=== PATIENT | female | born 1960 | race Caucasian/White ===

== ENCOUNTER 2017-05-21 01:24 | Observation (INO) | payer OTHER ==
--- NOTE | 2017-05-21 02:01 | ERPHSYRPT ---
- History of Present Illness Time Seen by Provider: 05/21/17 01:56 Source: patient, family Exam Limitations: no limitations Patient Subjective Stated Complaint: pt states she fell and hit her head. does not remember falling or events shortly after fall. Triage Nursing Assessment: pt awake and alert. speech slurred, pt having difficulty remembering words. respitations nonlabored with lungs cta. pt unsteady when transferring from wheelchair to stretcher. bruising and swelling noted to rt eye and cheek. abrasions to rt forehead above eye and below rt eye. pupils equal and reactive. strength in bilat upper and lower ext wnl. Physician History: pt fell earlier today after having been drinking etoh; she has trouble recalling the fall and may have had an LOC; she has abrasions of the face and swelling; no other complaints of pain or injury with full ROM all ext and no neuro deficits otehr than memory , and sister states she has had chronic memory problems as well. Severity: moderate Head Injury Location: frontal Method of Injury: fell Loss of Consciousness: unsure, memory impairment Associated Symptoms: denies symptoms Allergies/Adverse Reactions: tramadol Allergy (Verified 05/21/17 01:52) Home Medications: Benazepril HCl [Lotensin] 40 mg PO DAILY 08/24/12 [History] Alprazolam 1 mg [Xanax 1 mg] 1 mg PO Q8H PRN PRN 05/21/17 [History] Hydrochlorothiazide 25 mg [hydroDIURIL 25 MG] 25 mg PO DAILY 05/21/17 [ History] Oxycodone HCl/Acetaminophen [Percocet 10-325 mg Tablet] 1 each PO Q4H PRN PRN [History] Paroxetine HCl [Paxil] 20 mg PO DAILY 05/21/17 [History] Hx Tetanus, Diphtheria Vaccination/Date Given: Yes Hx Influenza Vaccination/Date Given: Yes (2009) Hx Pneumococcal Vaccination/Date Given: Yes (2009) - Review of Systems Constitutional: No Fever, No Chills Eyes: No Symptoms Ears, Nose, & Throat: No Symptoms, Other (facial swelling/tenderness) Respiratory: No Cough, No Dyspnea Cardiac: No Chest Pain, No Edema, No Syncope Abdominal/Gastrointestinal: No Abdominal Pain, No Nausea, No Vomiting, No Diarrhea Genitourinary Symptoms: No Dysuria Musculoskeletal: Fall, No Back Pain, No Neck Pain Skin: No Rash Neurological: No Dizziness, No Focal Weakness, No Sensory Changes Psychological: No Symptoms Endocrine: No Symptoms All Other Systems: Reviewed and Negative - Past Medical History Pertinent Past Medical History: Yes Neurological History: No Pertinent History ENT History: No Pertinent History Cardiac History: Hypertension Respiratory History: Other Endocrine Medical History: No Pertinent History Musculoskeletal History: Arthritis, Degenerative Disk Disease GI Medical History: No Pertinent History History: No Pertinent History Psycho-Social History: Anxiety, Depression Female Reproductive Disorders: No Pertinent History Other Medical History: Dr. Fraire for "spot" on lung, back and shoulder pain - Past Surgical History Past Surgical History: Yes Neuro Surgical History: No Pertinent History Cardiac: No Pertinent History Respiratory: No Pertinent History Gastrointestinal: No Pertinent History Genitourinary: No Pertinent History Musculoskeletal: No Pertinent History Female Surgical History: No Pertinent History, Tubal Ligation Other Surgical History: Tonsilectomy - Social History Smoking Status: Never smoker Exposure to second hand smoke: Yes Drug Use: none Patient Lives Alone: No - Female History Hx Last Menstrual Period: post - Nursing Vital Signs Nursing Vital Signs: Initial Vital Signs Temperature 98.1 F Temperature Source Oral Pulse Rate 94 Respiratory Rate 18 Blood Pressure [] 91/48 Pain Intensity 6 - Benjamin Coma Score Best Eye Response (Benjamin): (4) open spontaneously Best Verbal Response (Damaris): (5) oriented Best Motor Response (Damaris): (6) obeys commands Benjamin Total: 15 - Physical Exam General Appearance: no apparent distress, alert Head Injury: contusions, swelling, tenderness Eye Exam: bilateral eye: PERRL, EOMI ENT Exam: airway nml, evidence of ENT injury, No dental injury Neck Exam: trachea midline, muscle spasm, tender lateral Cardiovascular/Respiratory Exam: chest non-tender, normal breath sounds, regular rate/rhythm Gastrointestinal/Abdominal Exam: soft, non tender, no distention Pelvic Exam: deferred Rectal Exam: deferred Back Exam: normal inspection, No vertebral tenderness Extremity Exam: non-tender, normal range of motion, normal inspection Mental Status Exam: alert, oriented x 3, cooperative, other (some chronic memory problems and some post concussive amnesia) wet press tender Exam: PERRL, tongue midline, No facial droop, No facial weakness Motor/Sensory Exam: no motor deficit, no sensory deficit, CN II-XII intact, No pronator drift (R), No pronator drift (L) DTR Exam: bicep (R): 2+, bicep (L): 2+, tricep (R): 2+, tricep (L): 2+, knee (R) : 2+, knee (L): 2+, ankle (R): 2+, ankle (L): 2+ Skin Exam: normal color, warm, dry, No rash SpO2 Interpretation: borderline oxygenation SpO2: 93 Oxygen Delivery: Room Air - Course Nursing assessment & vital signs reviewed: Yes EKG Interpreted by Me: Sinus Rhythm, NORMAL AXIS, NORMAL QRS, NORMAL ST-T - Radiology Exams Chest X-ray Interpretation: Reviewed by me, Infiltrates (vs chronic) C-Spine X-ray Interpretation: Teleradiologist Report, No Fracture, Other (stable spondy c 4-5 and c3-4 spondy is limited to grade 1 ) - CT Exams Head CT Interpretation: Tele-radiologist Report, No/Intracranial Hemorrhag Maxillofacial Bones CT Interpretation: Tele-radiologist Report, Other (STS) Cervical Spine CT Interpretation: Tele-radiologist Report, DJD, No Fracture, Other (grade 1 spondy C2-3) Ordered Tests: Active Orders 24 hr Category Date Time Status EKG-ER Only STAT Care 05/21/17 02:04 Active IV Insertion STAT Care 05/21/17 02:04 Active CERVICAL SPINE (2 OR 3 VIEW) Stat Exams 05/21/17 03:40 Taken CERVICAL SPINE WO CONTRAST [CT] Stat Exams 05/21/17 02:08 Taken CHEST 1 VIEW (PORTABLE) Stat Exams 05/21/17 02:06 Taken FACIAL BONES WO CONTRAST [CT] Stat Exams 05/21/17 02:13 Taken HEAD WITHOUT CONTRAST [CT] Stat Exams 05/21/17 02:08 Taken CBC W DIFF Stat Lab 05/21/17 03:39 Completed CMP Stat Lab 05/21/17 03:39 Completed CULTURE,URINE Stat Lab 05/21/17 02:29 Received Ethyl Alcohol,Urine Stat Lab 05/21/17 02:29 Completed Lactic Acid Stat Lab 05/21/17 03:35 Completed TROPONIN Stat Lab 05/21/17 03:39 Completed UA W/ MICROSCOPIC Stat Lab 05/21/17 02:29 Completed Urine Triage Profile Stat Lab 05/21/17 02:29 Completed Medication Summary Discontinued Medications Generic Name Dose Route Start Last Admin Trade Name Pamela BRIGGSN Reason Stop Dose Admin Acetaminophen 975 mg 05/21/17 02:04 05/21/17 03:41 Tylenol 325 Mg PO 05/21/17 02:05 975 mg STAT ONE Administration Acetaminophen Confirm 05/21/17 03:39 Tylenol 325 Mg Administered 05/21/17 03:40 Dose 975 mg .ROUTE .STK-MED ONE Diphtheria/Tetanus/Acell Pertussis 0.5 ml 05/21/17 02:09 05/21/17 03:44 Adacel Vial IM 05/21/17 02:10 0.5 ml .ONCE ONE Administration Diphtheria/Tetanus/Acell Pertussis Confirm 05/21/17 03:39 Adacel Vial Administered 05/21/17 03:40 Dose 0.5 ml IM .STK-MED ONE Sodium Chloride 1,000 mls @ 999 mls/hr 05/21/17 02:04 05/21/17 03:41 Sodium Chloride 0.9% 1000 Ml IV 05/21/17 03:04 999 mls/hr .Q1H1M STA Administration Sodium Chloride Confirm 05/21/17 03:39 Sodium Chloride 0.9% 1000 Ml Administered 05/21/17 03:40 Dose 1,000 mls @ ud .ROUTE .STK-MED ONE Ceftriaxone Sodium/Dextrose 1 g in 50 mls @ 100 mls/hr 05/21/17 04:12 04:22 Rocephin 1 Gm-D5w 50 Ml Bag IV 05/21/17 04:41 100 mls/hr STAT STA Administration Ceftriaxone Sodium/Dextrose Confirm 05/21/17 04:18 Rocephin 1 Gm-D5w 50 Ml Bag Administered 05/21/17 04:19 Dose 1 g in 50 mls @ ud IV .STK-MED ONE Lab/Rad Data: Laboratory Result Diagrams 05/21/17 03:39 05/21/17 03:39 Laboratory Results 05/21/17 05/21/17 05/21/17 Range/Units 03:39 03:39 03:35 WBC 6.9 (4.0-10.5) K/mm3 RBC 4.44 (4.1-5.4) M/mm3 Hgb 12.6 (12.0-16.0) gm/dl Hct 37.1 (35-47) % MCV 83.6 (78-100) fl MCH 28.4 (26-32) pg MCHC 34.0 (32-36) g/dl RDW 13.1 (11.5-14.0) % Plt Count 341 (150-450) K/mm3 MPV 9.4 (6-9.5) fl Gran % 65.4 (36.0-66.0) % Lymphocytes % 23.8 L (24.0-44.0) % Monocytes % 9.2 (0.0-12.0) % Eosinophils % 1.2 (0.00-5.0) % Basophils % 0.4 (0.0-0.4) % Basophils # 0.03 (0-0.4) Sodium 133 L (136-145) mEq/L Potassium 4.2 (3.5-5.1) mEq/L Chloride 97 L (98-107) mEq/L Carbon Dioxide 23.2 (21-32) mEq/L Anion Gap 16.8 H (5-15) MEQ/L BUN 19 (9-20) mg/dL Creatinine 1.06 (0.55-1.30) mg/dl Estimated GFR 57 ML/MIN Glucose 126 H (70-110) MG/DL Lactic Acid 1.1 (0.4-2.0) Calcium 9.7 (8.5-10.1) mg/dL Total Bilirubin 0.30 (0.2-1.0) mg/dL AST 24 (15-37) U/L ALT 20 (12-78) U/L Alkaline Phosphatase 92 (46-116) U/L Troponin I < 0.017 (0.000-0.056) ng/ml Serum Total Protein 8.6 H (6.4-8.2) gm/dL Albumin 4.0 (3.4-5.0) g/dL Ur Collection Type Urine Color (YELLOW) Urine Appearance (CLEAR) Urine pH (5-6) Ur Specific [place] (1.005-1.025) Urine Protein (Negative) Urine Ketones (NEGATIVE) Urine Blood (0-5) Andrew/ul Urine Nitrite (NEGATIVE) Urine Bilirubin (NEGATIVE) Urine Urobilinogen (0-1) mg/dL Ur Leukocyte Esterase (NEGATIVE) Urine Microscopic RBC (0-2) /HPF Urine Microscopic WBC (0-5) /HPF Ur Epithelial Cells (FEW) /HPF Urine Bacteria (NEGATIVE) /HPF Urine Mucus (NEGATIVE) /HPF Urine Glucose (NEGATIVE) mg/dL Urine Opiates Level (NEGATIVE) Ur Methadone (NEGATIVE) Urine Barbiturates (NEGATIVE) Ur Phencyclidine (PCP) (NEGATIVE) Urine Amphetamine (NEGATIVE) U Benzodiazepine Level (NEGATIVE) Urine Cocaine (NEGATIVE) Urine Marijuana (THC) (NEGATIVE) Urine Ethyl Alcohol (0.00-20) mg/dl Specimen Received 05/21/17 05/21/17 05/21/17 Range/Units 02:29 02:29 02:29 WBC (4.0-10.5) K/mm3 RBC (4.1-5.4) M/mm3 Hgb (12.0-16.0) gm/dl Hct (35-47) % MCV (78-100) fl MCH (26-32) pg MCHC (32-36) g/dl RDW (11.5-14.0) % Plt Count (150-450) K/mm3 MPV (6-9.5) fl Gran % (36.0-66.0) % Lymphocytes % (24.0-44.0) % Monocytes % (0.0-12.0) % Eosinophils % (0.00-5.0) % Basophils % (0.0-0.4) % Basophils # (0-0.4) Sodium (136-145) mEq/L Potassium (3.5-5.1) mEq/L Chloride (98-107) mEq/L Carbon Dioxide (21-32) mEq/L Anion Gap (5-15) MEQ/L BUN (9-20) mg/dL Creatinine (0.55-1.30) mg/dl Estimated GFR ML/MIN Glucose (70-110) MG/DL Lactic Acid (0.4-2.0) Calcium (8.5-10.1) mg/dL Total Bilirubin (0.2-1.0) mg/dL AST (15-37) U/L ALT (12-78) U/L Alkaline Phosphatase (46-116) U/L Troponin I (0.000-0.056) ng/ml Serum Total Protein (6.4-8.2) gm/dL Albumin (3.4-5.0) g/dL Ur Collection Type CLEAN CATCH Urine Color LT.YELLOW (YELLOW) Urine Appearance CLEAR (CLEAR) Urine pH 5.0 5.0 (5-6) Ur Specific [place] 1.010 (1.005-1.025) Urine Protein NEGATIVE (Negative) Urine Ketones NEGATIVE (NEGATIVE) Urine Blood NEGATIVE (0-5) Andrew/ul Urine Nitrite POSITIVE (NEGATIVE) Urine Bilirubin NEGATIVE (NEGATIVE) Urine Urobilinogen NORMAL (0-1) mg/dL Ur Leukocyte Esterase TRACE (NEGATIVE) Urine Microscopic RBC 0-2 (0-2) /HPF Urine Microscopic WBC 5-10 (0-5) /HPF Ur Epithelial Cells FEW (FEW) /HPF Urine Bacteria MANY (NEGATIVE) /HPF Urine Mucus SLIGHT (NEGATIVE) /HPF Urine Glucose NEGATIVE (NEGATIVE) mg/dL Urine Opiates Level NEG. (NEGATIVE) Ur Methadone NEG. (NEGATIVE) Urine Barbiturates NEG. (NEGATIVE) Ur Phencyclidine (PCP) NEG. (NEGATIVE) Urine Amphetamine NEG. (NEGATIVE) U Benzodiazepine Level POS. (NEGATIVE) Urine Cocaine NEG. (NEGATIVE) Urine Marijuana (THC) NEG. (NEGATIVE) Urine Ethyl Alcohol 352 H (0.00-20) mg/dl Specimen Received 05/21/17 0230 - Progress Progress: improved, re-examined Progress Note: 05/21/17 04:34 ekg/labs completed for altered mental status. pt is gradually becoming more alert, but warrants obs until clinically sober. 05/21/17 04:46 discussed with pt, family and dr Marques and all agree best to place pt in obs and monitor for any change and then could be DC tomorrow when clincially sober , and that symptoms resolve. Discussed with : Jerald Will see patient in: hospital (observation) Counseled pt/family regarding: lab results, diagnosis, need for follow-up, rad results - Departure Time of Disposition: 04:55 Departure Disposition: Observation Clinical Impression: Concussion, Spondylolisthesis, cervical region, UTI (urinary tract infection), Pulmonary infiltrates Condition: Good Critical Care Time: No Referrals: DOCTOR,NO FAMILY [Primary Care Provider] -
[2017-05-21] MEDS ORDERED: Sodium Chloride 0.9% 1000 ML 1,000 ML IV STA (02:04)
[2017-05-21] MEDS ORDERED: TYLENOL 325 MG PO ONE (02:04)
[2017-05-21] MEDS ORDERED: Adacel Vial IM ONE ×2 (02:09→03:39)
[2017-05-21 02:43] LABS: ADD URINE CULTURE? YES (NO); Bacteria MANY /HPF (NEGATIVE); Bilirubin NEGATIVE (NEGATIVE); Blood NEGATIVE Ery/ul (0-5); COMPLETE URINE MICROSCOPIC? YES; Collection Type CLEAN CATCH; Epithelial Cells FEW /HPF (FEW); Glucose NEGATIVE (NEGATIVE); Leukocyte Esterase TRACE (NEGATIVE); Mucus SLIGHT /HPF (NEGATIVE)
[2017-05-21] MEDS ORDERED: Sodium Chloride 0.9% 1000 ML 1,000 ML ONE (03:39)
[2017-05-21] MEDS ORDERED: TYLENOL 325 MG ONE (03:39)
[2017-05-21 03:43] LABS: BASOPHIL % 0.4 % (0.0-0.4); Eosinophil % 1.2 % (0.00-5.0); Granulocytes % 65.4 % (36.0-66.0); Lymphocytes % 23.8 % (24.0-44.0); Mean Cell Volume 83.6 fl (78-100); Mean Corpuscular Hemoglobin 28.4 pg (26-32); Mean Platelet Volume 9.4 fl (6-9.5); Monocytes % 9.2 % (0.0-12.0); Platelet Count 341 K/mm3 (150-450); Red Blood Count 4.44 M/mm3 (4.1-5.4); Red Cell Distribution Width 13.1 % (11.5-14.0); White Blood Count 6.9 K/mm3 (4.0-10.5)
[2017-05-21 04:05] LABS: ALKALINE PHOSPHATASE 92 U/L (46-116); ANION GAP 16.8 MEQ/L (5-15); BLOOD UREA NITROGEN 19 mg/dL (9-20); CHLORIDE 97 mEq/L (98-107); Carbon Dioxide 23.2 mEq/L (21-32); Glucose 126 MG/DL (70-110); Potassium 4.2 mEq/L (3.5-5.1); SGOT/AST 24 U/L (15-37); SGPT/ALT 20 U/L (12-78); SODIUM 133 mEq/L (136-145); Total Protein 8.6 gm/dL (6.4-8.2)
[2017-05-21 04:08] LABS: TROPONIN < 0.017 ng/ml (0.000-0.056)
[2017-05-21] MEDS ORDERED: ROCEPHIN 1 Gm-D5w 50 ml Bag** 1 G/50 ML IVPB IV STA (04:12)
[2017-05-21] MEDS ORDERED: ROCEPHIN 1 Gm-D5w 50 ml Bag** 1 G/50 ML IVPB IV ONE (04:18)
[2017-05-21] MEDS ORDERED: Sodium Chloride 0.9% 1000 ML 1,000 ML IV SCH (05:47)
[2017-05-21] MEDS ORDERED: MORPHINE SULFATE 4 MG INJ IV PRN (05:47)
--- NOTE | 2017-05-21 08:45 | XRAY ---
Indication: Right frontal swelling/headache and memory loss following fall. Multiple contiguous axial images obtained through the head without contrast. Comparison: November 11, 2010. New small right frontal scalp hematoma. Normal appearing brain parenchyma, ventricles, and bony calvarium. Visualized paranasal sinuses and mastoid air cells are pneumatized and clear. Impression: New right frontal scalp hematoma. No underlying fracture or acute intracranial abnormalities. Comment: Preliminary interpretation was made by [facility]. No discrepancy. CT DI 49.27
--- NOTE | 2017-05-21 08:49 | XRAY ---
Indication: Right frontal swelling/headache and memory loss following fall. Multiple contiguous axial images obtained through the facial bones. Sagittal and coronal reformatted images obtained. Comparison: November 11, 2010. Patient is now edentulous. New partially visualized right frontal scalp hematoma. No acute fracture, suspicious bony lesions, or radiopaque foreign body. Orbits including roof, araya, and floors intact. Paranasal sinuses and mastoid air cells are pneumatized and essentially clear. Visualized noncontrasted soft tissues unremarkable. CT head and cervical spine reported separately. Impression: New right frontal scalp hematoma. CT facial bones negative for acute fracture. Comment: Preliminary interpretation was made by [facility]. No discrepancy. CT DI 59.47
--- NOTE | 2017-05-21 08:56 | XRAY ---
Indication: Neck pain following fall. Multiple contiguous axial images obtained through the cervical spine. Sagittal and coronal reformatted images obtained. Comparison: November 11, 2010. Axial images again negative for acute fracture, suspicious bony lesions, or spinal canal stenosis. There remains mild/moderate C4-C7 degenerative endplate spurring with C5-C6 canal narrowing. Slight progressive worsening multilevel bilateral degenerative facet arthropathy. Sagittal and coronal reformatted images again demonstrates lordotic straightening, positional versus paraspinal muscular spasm. Stable C4-C7 disc space narrowing and minimal 2 mm anterolisthesis of C3 on C4. No acute compression fracture, new subluxation, or jumped facet. Normal-appearing craniocervical junction. Visualized noncontrasted soft tissues unremarkable. CT head and CT facial bones reported separately. Impression: 1. Again negative for acute fracture/subluxation. 2. There remains cervical lordotic straightening and multilevel degenerative spondylosis including C5-C6 canal narrowing and minimal grade 1 C3 anterolisthesis. Comment: Preliminary interpretation was made by [facility]. No discrepancy. CT DI 124.80
--- NOTE | 2017-05-21 09:03 | XRAY ---
Indication: Evaluate grade 1 C3 anterolisthesis on same-day CT cervical spine. Lateral cervical spine demonstrates very minimal C3 grade 1 anterolisthesis and C4 grade 1 retrolisthesis essentially unchanged with flexion/extension maneuvering. No new/acute findings. Comment: Preliminary interpretation was made by [facility]. No critical discrepancy.
--- NOTE | 2017-05-21 09:04 | XRAY ---
Indication: Low oxygenation. Comparison: October 08, 2010. Portable chest clear today. Heart and mediastinal structures within normal limits. Bony thorax intact again with mild spinal degenerative changes. Impression: Nonacute chest.
[2017-05-21] MEDS ORDERED: ROCEPHIN 1 Gm-D5w 50 ml Bag** 1 G/50 ML IVPB IV SCH (10:00)
[2017-05-21] MEDS ORDERED: NON-FORMULARY ITEM (Benazepril Hcl [Lotensin] 40 MG) PO SCH (10:00)
[2017-05-21] MEDS ORDERED: Paxil 20 MG PO SCH (10:00)
[2017-05-21] MEDS ORDERED: Lotensin 10 MG PO SCH (10:00)
[2017-05-21] MEDS ORDERED: hydroDIURIL 25 MG PO SCH (10:00)
--- NOTE | 2017-05-21 11:11 | PCM.SSS ---
History of Present Illness - Chief Complaint Chief Complaint: c/o confusion History of Present Illness: is a 56 year old femalept fell earlier today after having been drinking etoh; she has trouble recalling the fall and may have had an LOC; she has abrasions of the face and swelling; no other complaints of pain or injury with full ROM all ext and no neuro deficits otehr than memory , and sister states she has had chronic memory problems as well.. - Review of Systems Constitutional: No Fever, No Chills Eyes: No Symptoms Ears, Nose, & Throat: No Symptoms Respiratory: No Cough, No Short Of Breath Cardiac: No Chest Pain, No Edema, No Syncope Abdominal/Gastrointestinal: No Abdominal Pain, No Nausea, No Vomiting, No Diarrhea Genitourinary Symptoms: No Dysuria Musculoskeletal: No Back Pain, No Neck Pain Skin: No Rash Neurological: No Dizziness, No Focal Weakness, No Sensory Changes Psychological: No Symptoms Endocrine: No Symptoms Hematologic/Lymphatic: No Symptoms Immunological/Allergic: No Symptoms Medications & Allergies Home Medications: Home Medication List Benazepril HCl [Lotensin] 40 mg PO DAILY 08/24/12 [History Confirmed 05/21/17] Alprazolam 1 mg [Xanax 1 mg] 1 mg PO Q8H PRN PRN 05/21/17 [History Confirmed 05/21/17] Ciprofloxacin [Cipro 500 MG] 500 mg PO BIDAC #10 tablet 05/21/17 [Rx] Hydrochlorothiazide 25 mg [hydroDIURIL 25 MG] 25 mg PO DAILY 05/21/17 [ History Confirmed 05/21/17] Oxycodone HCl/Acetaminophen [Percocet 10-325 mg Tablet] 1 each PO Q4H PRN PRN [History Confirmed 05/21/17] Paroxetine HCl [Paxil] 20 mg PO DAILY 05/21/17 [History Confirmed 05/21/17] Allergies/Adverse Reactions: Allergies Allergy/AdvReac Type Severity Reaction Status Date / Time tramadol Allergy Verified 05/21/17 01:52 - Past Medical History Past Medical History: Yes Neurological History: No Pertinent History ENT History: No Pertinent History Cardiac History: Hypertension Respiratory History: Other Endocrine Medical History: No Pertinent History Musculoskelatal History: Degenerative Disk Disease, Osteoarthritis GI Medical History: No Pertinent History History: No Pertinent History Pyscho-Social History: Anxiety, Depression Reproductive Disorders: No Pertinent History Comment: Dr. Fraire for "spot" on lung, back and shoulder pain - Female History Hx Last Menstrual Period: post Are you now?: No - Past Surgical History Past Surgical History: Yes Neuro Surgical History: No Pertinent History Cardiac History: No Pertinent History Respiratory Surgery: No Pertinent History GI Surgical History: No Pertinent History Genitourinary Surgical Hx: No Pertinent History Musculskeletal Surgical Hx: No Pertinent History Female Surgical History: No Pertinent History, Tubal Ligation Other Surgical History: Tonsilectomy - Social History Smoking Status: Never smoker Exposure to second hand smoke: No Alcohol: Occasionally Drug Use: none - Physical Exam Vital Signs: Vital Signs - 24 hr Temp Pulse Resp BP Pulse Ox 05/21/17 07:36 86 L 05/21/17 06:40 95 05/21/17 06:16 98.2 F 81 17 94/52 92 L 05/21/17 04:57 93 L 05/21/17 04:44 78 18 93/62 94 L 05/21/17 03:30 92 H 18 101/64 93 L 05/21/17 01:31 98.1 F 94 H 18 91/48 93 L General Appearance: no apparent distress, alert Neurologic Exam: alert, oriented x 3, cooperative, normal mood/affect, nml cerebellar function, nml station & gait, sensation nml, No motor deficits Eye Exam: PERRL/EOMI, eyes nml inspection Ears, Nose, Throat Exam: normal ENT inspection, TMs normal, pharynx normal, moist mucous membranes Neck Exam: normal inspection, non-tender, supple, full range of motion Respiratory Exam: normal breath sounds, lungs clear, No respiratory distress Cardiovascular Exam: regular rate/rhythm, normal heart sounds, normal peripheral pulses Gastrointestinal/Abdomen Exam: soft, normal bowel sounds, No tenderness, No mass Back Exam: normal inspection, normal range of motion, No CVA tenderness, No vertebral tenderness Extremity Exam: normal inspection, normal range of motion, pelvis stable Skin Exam: normal color, warm, dry, No rash Lymphatic Exam: No adenopathy Results - Other Procedures and Tests Respiratory Therapy 05/21/17 07:31 Oxygen NASAL CANNULA 2 lpm Assessment/Plan (1) Alcohol intoxication Current Visit: Yes Status: Resolved Qualifiers: Complication of substance-induced condition: uncomplicated Qualified Code(s ): F10.920 - Alcohol use, unspecified with intoxication, uncomplicated (2) UTI (urinary tract infection) Current Visit: Yes Status: Acute Qualifiers: Urinary tract infection type: acute pyelonephritis Qualified Code(s): N10 - Acute pyelonephritis Assessment & Plan: will discharge home with cipro 500 mg po bid for 5 days Code(s): N39.0 - URINARY TRACT INFECTION, SITE NOT SPECIFIED Hospital Summary - Hospital Course Hospital Course: Chief Complaint Diagnosis AMS, SP concussion, UTI cervical spondylolisthesis Allergies Allergy/AdvReac Type Severity Reaction Status Date / Time tramadol Allergy Verified 05/21/17 01:52 Vital Signs (Last 24 hours) Temp Pulse Resp BP Pulse Ox 05/21/17 07:36 86 L 05/21/17 06:40 95 05/21/17 06:16 98.2 F 81 17 94/52 92 L 05/21/17 04:57 93 L 05/21/17 04:44 78 18 93/62 94 L 05/21/17 03:30 92 H 18 101/64 93 L 05/21/17 01:31 98.1 F 94 H 18 91/48 93 L Home Medications Medication Instructions Recorded Confirmed Last Taken Type Alprazolam 1 mg [Xanax 1 mg] 1 mg PO Q8H PRN PRN 05/21/17 05/21/17 16:00 History Hydrochlorothiazide 25 mg 25 mg PO DAILY 05/21/17 05/21/17 05/20/17 History [hydroDIURIL 25 MG] Oxycodone HCl/Acetaminophen 1 each PO Q4H PRN PRN 05/21/17 05/21/17 Unknown History [Percocet 10-325 mg Tablet] Paroxetine HCl [Paxil] 20 mg PO DAILY 05/21/17 05/21/17 05/20/17 History Current Medications Generic Name Dose Route Start Last Admin Trade Name Freq PRN Reason Stop Dose Admin Benazepril HCl 40 mg 05/21/17 10:00 05/21/17 09:34 Lotensin 10 Mg PO 06/20/17 09:59 40 mg DAILY DANITZA Administration Hydrochlorothiazide 25 mg 05/21/17 10:00 07/03/17 09:34 Hydrodiuril 25 Mg PO 06/20/17 09:59 25 mg DAILY DANITZA Administration Ceftriaxone Sodium/Dextrose 1 g in 50 mls @ 100 mls/hr 05/21/17 10:00 09:34 Rocephin 1 Gm-D5w 50 Ml Bag IV 06/20/17 09:59 100 mls/hr Q24H10 DANITZA Administration Sodium Chloride 1,000 mls @ 50 mls/hr 05/21/17 05:47 05/21/17 07:26 Sodium Chloride 0.9% 1000 Ml IV 06/20/17 05:46 50 mls/hr .Q20H DANITZA Administration Morphine Sulfate 4 mg 05/21/17 05:47 05/21/17 07:38 Morphine Sulfate 4 Mg Inj IV 05/26/17 05:46 4 mg Q4H PRN PRN Administration PAIN Paroxetine HCl 20 mg 05/21/17 10:00 05/21/17 09:34 Paxil 20 Mg PO 06/20/17 09:59 20 mg DAILY DANITZA Administration Discontinued Medications Generic Name Dose Route Start Last Admin Trade Name Freq PRN Reason Stop Dose Admin Acetaminophen 975 mg 05/21/17 02:04 05/21/17 03:41 Tylenol 325 Mg PO 05/21/17 02:05 975 mg STAT ONE Administration Acetaminophen Confirm 05/21/17 03:39 Tylenol 325 Mg Administered 05/21/17 03:40 Dose 975 mg .ROUTE .STK-MED ONE Diphtheria/Tetanus/Acell Pertussis 0.5 ml 05/21/17 02:09 05/21/17 03:44 Adacel Vial IM 05/21/17 02:10 0.5 ml .ONCE ONE Administration Diphtheria/Tetanus/Acell Pertussis Confirm 05/21/17 03:39 Adacel Vial Administered 05/21/17 03:40 Dose 0.5 ml IM .STK-MED ONE Sodium Chloride 1,000 mls @ 999 mls/hr 05/21/17 02:04 05/21/17 03:41 Sodium Chloride 0.9% 1000 Ml IV 05/21/17 03:04 999 mls/hr .Q1H1M STA Administration Sodium Chloride Confirm 05/21/17 03:39 Sodium Chloride 0.9% 1000 Ml Administered 05/21/17 03:40 Dose 1,000 mls @ ud .ROUTE .STK-MED ONE Ceftriaxone Sodium/Dextrose 1 g in 50 mls @ 100 mls/hr 05/21/17 04:12 04:22 Rocephin 1 Gm-D5w 50 Ml Bag IV 05/21/17 04:41 100 mls/hr STAT STA Administration Ceftriaxone Sodium/Dextrose Confirm 05/21/17 04:18 Rocephin 1 Gm-D5w 50 Ml Bag Administered 05/21/17 04:19 Dose 1 g in 50 mls @ ud IV .STK-MED ONE Intake & Output (Last 24 hours) 05/18/17 05/19/17 05/20/17 05/21/17 11:59 11:59 11:59 11:59 Intake Total 420 Output Total 1200 Balance -780 Weight 93.712 kg Microbiology Results (Last 24 hours) 05/21/17 02:29 Clean Catch Midstream - Preliminary NO GROWTH TO DATE Laboratory Results (Last 24 hours) 05/21/17 05/21/17 05/21/17 03:39 03:39 03:35 WBC 6.9 RBC 4.44 Hgb 12.6 Hct 37.1 MCV 83.6 MCH 28.4 MCHC 34.0 RDW 13.1 Plt Count 341 MPV 9.4 Gran % 65.4 Lymphocytes % 23.8 L Monocytes % 9.2 Eosinophils % 1.2 Basophils % 0.4 Basophils # 0.03 Sodium 133 L Potassium 4.2 Chloride 97 L Carbon Dioxide 23.2 Anion Gap 16.8 H BUN 19 Creatinine 1.06 Estimated GFR 57 Glucose 126 H Lactic Acid 1.1 Calcium 9.7 Total Bilirubin 0.30 AST 24 ALT 20 Alkaline Phosphatase 92 Troponin I < 0.017 Serum Total Protein 8.6 H Albumin 4.0 Ur Collection Type Urine Color Urine Appearance Urine pH Ur Specific [place] Urine Protein Urine Ketones Urine Blood Urine Nitrite Urine Bilirubin Urine Urobilinogen Ur Leukocyte Esterase Urine Microscopic RBC Urine Microscopic WBC Ur Epithelial Cells Urine Bacteria Urine Mucus Urine Glucose Urine Opiates Level Ur Methadone Urine Barbiturates Ur Phencyclidine (PCP) Urine Amphetamine U Benzodiazepine Level Urine Cocaine Urine Marijuana (THC) Urine Ethyl Alcohol Specimen Received 05/21/17 05/21/17 05/21/17 02:29 02:29 02:29 WBC RBC Hgb Hct MCV MCH MCHC RDW Plt Count MPV Gran % Lymphocytes % Monocytes % Eosinophils % Basophils % Basophils # Sodium Potassium Chloride Carbon Dioxide Anion Gap BUN Creatinine Estimated GFR Glucose Lactic Acid Calcium Total Bilirubin AST ALT Alkaline Phosphatase Troponin I Serum Total Protein Albumin Ur Collection Type CLEAN CATCH Urine Color LT.YELLOW Urine Appearance CLEAR Urine pH 5.0 5.0 Ur Specific [place] 1.010 Urine Protein NEGATIVE Urine Ketones NEGATIVE Urine Blood NEGATIVE Urine Nitrite POSITIVE Urine Bilirubin NEGATIVE Urine Urobilinogen NORMAL Ur Leukocyte Esterase TRACE Urine Microscopic RBC 0-2 Urine Microscopic WBC 5-10 Ur Epithelial Cells FEW Urine Bacteria MANY Urine Mucus SLIGHT Urine Glucose NEGATIVE Urine Opiates Level NEG. Ur Methadone NEG. Urine Barbiturates NEG. Ur Phencyclidine (PCP) NEG. Urine Amphetamine NEG. U Benzodiazepine Level POS. Urine Cocaine NEG. Urine Marijuana (THC) NEG. Urine Ethyl Alcohol 352 H Specimen Received 05/21/17 0230 Orders (Last 24 hours) Category Date Time Status Bedrest Activity 05/21/17 05:47 Active Admission/Status Order ONCE Care 05/21/17 05:47 Active Code Status Order ROUTINE Care 05/21/17 05:47 Active EKG-ER Only STAT Care 05/21/17 02:04 Completed IV Insertion STAT Care 05/21/17 02:04 Completed Intake and Output Q12H Care 05/21/17 05:47 Active Neuro Checks Q4H Care 05/21/17 05:47 Active Telemetry Q6H Care 05/21/17 05:47 Active Vital Signs Q4H Care 05/21/17 12:00 Active Weight,Daily Q24H Care 05/21/17 05:47 Active Cardiac Diet Diet 05/21/17 Breakfast Active CERVICAL SPINE (2 OR 3 VIEW) Stat Exams 05/21/17 03:40 Completed CERVICAL SPINE WO CONTRAST [CT] Stat Exams 05/21/17 02:08 Completed CHEST 1 VIEW (PORTABLE) Stat Exams 05/21/17 02:06 Completed FACIAL BONES WO CONTRAST [CT] Stat Exams 05/21/17 02:13 Completed HEAD WITHOUT CONTRAST [CT] Stat Exams 05/21/17 02:08 Completed CBC W DIFF AM.LAB Lab 05/22/17 04:00 Ordered CBC W DIFF Stat Lab 05/21/17 03:39 Completed CMP AM.LAB Lab 05/22/17 04:00 Ordered CMP Stat Lab 05/21/17 03:39 Completed CULTURE,URINE Stat Lab 05/21/17 02:29 Results Ethyl Alcohol,Urine Stat Lab 05/21/17 02:29 Completed Lactic Acid Stat Lab 05/21/17 03:35 Completed TROPONIN Stat Lab 05/21/17 03:39 Completed UA W/ MICROSCOPIC Stat Lab 05/21/17 02:29 Completed Urine Triage Profile Stat Lab 05/21/17 02:29 Completed Acetaminophen 325 mg [Tylenol 325 mg] Med 05/21/17 03:39 Discontinued 975 mg .ROUTE .STK-MED ONE Acetaminophen 325 mg [Tylenol 325 mg] Med 05/21/17 02:04 Discontinued 975 mg PO STAT ONE Benazepril HCl 10 mg [Lotensin 10 MG] Med 05/21/17 10:00 Active 40 mg PO DAILY Ceftriaxone 1 GM/50 ML PREMIX* [ROCEPHIN 1 Gm-D5w 50 ml Med 05/21/17 10:00 Active Bag] 1 g in 50 ml IV Q24H10 Ceftriaxone 1 GM/50 ML PREMIX* [ROCEPHIN 1 Gm-D5w 50 ml Med 05/21/17 04:12 Discontinued Bag] 1 g in 50 ml IV STAT Ceftriaxone 1 GM/50 ML PREMIX* [ROCEPHIN 1 Gm-D5w 50 ml Med 05/21/17 04:18 Discontinued Bag] 1 g in 50 ml IV UD Diph,Pertuss(Acell),Tet Vac/Pf [Adacel Vial] Med 05/21/17 02:09 Discontinued 0.5 ml IM .ONCE ONE Diph,Pertuss(Acell),Tet Vac/Pf [Adacel Vial] Med 05/21/17 03:39 Discontinued 0.5 ml IM .STK-MED ONE Hydrochlorothiazide 25 mg [hydroDIURIL 25 MG] Med 05/21/17 10:00 Active 25 mg PO DAILY Morphine Sulfate 4 mg Inj Med 05/21/17 05:47 Active 4 mg IV Q4H PRN PRN NaCl 0.9% 1000 ml [Sodium Chloride 0.9% 1000 ML] 1,000 Med 05/21/17 03:39 Discontinued ml .ROUTE UD NaCl 0.9% 1000 ml [Sodium Chloride 0.9% 1000 ML] 1,000 Med 05/21/17 05:47 Active ml IV 50 mls/hr NaCl 0.9% 1000 ml [Sodium Chloride 0.9% 1000 ML] 1,000 Med 05/21/17 02:04 Discontinued ml IV 999 mls/hr Paroxetine HCl 20 mg [Paxil 20 MG] Med 05/21/17 10:00 Active 20 mg PO DAILY Oxygen NASAL CANNULA 2 lpm RT 05/21/17 07:31 Active Pulse Oximetry .continuos RT 05/21/17 05:47 Active Transfer Order Routine Transfer 05/21/17 04:57 Completed doing much better, will discharge home - Vitals & Intake/Output Vital Signs: Vital Signs Temperature 98.2 F 05/21/17 06:16 Pulse Rate 81 05/21/17 06:16 Respiratory Rate 17 05/21/17 06:16 Blood Pressure 94/52 05/21/17 06:16 O2 Sat by Pulse Oximetry 86 L 05/21/17 07:36 Intake & Output: Intake & Output 05/18/17 05/19/17 05/20/17 05/21/17 11:59 11:59 11:59 11:59 Intake Total 420 Output Total 1200 Balance -780 Weight 93.712 kg - Lab Result Diagrams: 05/21/17 03:39 05/21/17 03:39 - Procedures and Test Procedures and Tests throughout Hospitalization: Therapy Orders & Screens 05/21/17 07:31 Oxygen NASAL CANNULA 2 lpm Comment: Diagnosis: AMS, SP concussion, UTI cervical spondylolisthesis - Discharge Discharge Date: 05/21/17 Disposition: Home, Self-Care Condition: Good Prescriptions: New Ciprofloxacin [Cipro 500 MG] 500 mg PO BIDAC #10 tablet Continue Benazepril HCl [Lotensin] 40 mg PO DAILY Hydrochlorothiazide 25 mg [hydroDIURIL 25 MG] 25 mg PO DAILY Oxycodone HCl/Acetaminophen [Percocet 10-325 mg Tablet] 1 each PO Q4H PRN PRN PRN Reason: Pain Alprazolam 1 mg [Xanax 1 mg] 1 mg PO Q8H PRN PRN PRN Reason: Anxiety Paroxetine HCl [Paxil] 20 mg PO DAILY Follow up with: DOCTOR,NO FAMILY [Primary Care Provider] - Call for Appointment
[2017-05-21 13:38] VITALS: BP 55/31; PULSE 84; O2SAT 97
== END 2017-05-21 12:55 | disposition home or self-care (01) ==
LOC: ED 01:24 → MED SURG 05:37
PROVIDERS: ADMIT General Practice; ATTEND General Practice
DX: F10.129 Alcohol abuse with intoxication, unspecified (principal); N10 Acute pyelonephritis; I10 Essential (primary) hypertension; R41.3 Other amnesia; M54.2 Cervicalgia; S00.81XA Abrasion of other part of head, initial encounter; W18.30XA Fall on same level, unspecified, initial encounter; Z79.891 Long term (current) use of opiate analgesic
CPT/HCPCS: 36000; 36415; 70450; 70486; 71010; 72040; 72125; 80053; 80307; 80320; 81000; 83605; 83986; 84484; 85025; 87077; 87086; 87186; 90471; 90715; 93005; 93268; 94760; 96360; 96361; 96365; 99285; G0378; J0696; J2270; A9270-GY